=== PATIENT | male | born 1955 | race Caucasian/White ===

== ENCOUNTER 2018-03-22 12:43 | Emergency (ER) | payer OTHER ==
[~2018-03-22] VITALS: Ht 182.9 cm; Wt 106.3 kg
[2018-03-22] MEDS ORDERED: MOTRIN600 MG PO (14:38)
[2018-03-22] MEDS ORDERED: TRAMADOL HCL50 MG PO (14:38)
[2018-03-22 14:55] VITALS: BP 129/101
== END 2018-03-22 15:12 | disposition home or self-care (01) ==
LOC: EME 12:43
DX: S86.111A Strain of other muscle(s) and tendon(s) of posterior muscle group at lower leg level, right leg, initial encounter (principal); W18.40XA Slipping, tripping and stumbling without falling, unspecified, initial encounter; X50.1XXA Overexertion from prolonged static or awkward postures, initial encounter; I10 Essential (primary) hypertension; Z87.891 Personal history of nicotine dependence; Z88.1 Allergy status to other antibiotic agents
CPT/HCPCS: 99281; 99284